=== PATIENT | female | born 2000 | race Asian ===

== ENCOUNTER 2020-08-04 11:37 | Emergency (ER) | payer OTHER ==
[~2020-08-04] VITALS: Ht 160 cm; Wt 72.6 kg
[2020-08-04 11:50] VITALS: BP 127/96
[2020-08-04 12:44] VITALS: BP 127/96
== END 2020-08-04 12:44 | disposition home or self-care (01) ==
LOC: MED 11:37
DX: S61.231A Puncture wound without foreign body of left index finger without damage to nail, initial encounter (principal); W46.1XXA Contact with contaminated hypodermic needle, initial encounter; Y93.89 Activity, other specified; Y92.89 Other specified places as the place of occurrence of the external cause; Y99.8 Other external cause status
CPT/HCPCS: 99281